=== PATIENT | female | born 1950 | race Caucasian/White ===

== ENCOUNTER 2018-12-16 10:17 | Day surgery (SDC) | payer MEDICARE | END 2018-12-16 23:02 | disposition home or self-care (01) | LOC: MOI MAM 10:17 | DX: D24.2 Benign neoplasm of left breast (principal); R92.0 Mammographic microcalcification found on diagnostic imaging of breast; R92.8 Other abnormal and inconclusive findings on diagnostic imaging of breast | CPT/HCPCS: 19081; 88305 ==

== ENCOUNTER 2020-04-10 08:03 | Day surgery (SDC) | payer MEDICARE ==
[~2020-04-10] VITALS: Ht 170.2 cm; Wt 71.4 kg
[~2020-04-10 08:03] MED LIST: Aspir 8181 MG PO; GABA300 PO; Norco 10-325 T1 EACH PO; ZOLP10 PO
[2020-04-10] MEDS ORDERED: DULO30 PO (08:59)
--- NOTE | 2020-04-10 09:49 | NUR ---
04/10/20 0949 Maddie Zee [address] VANN SHOULDER COCKTAIL INJECTED INTO OPSITE AT END OF CASE FOR PAIN CONTROL. SEE ORDERS.
--- NOTE | 2020-04-10 11:33 | NUR ---
04/10/20 1133 MAURO DEE PATIENT TO RECLINER. PATIENT TOLERATING SIPS OF LIQUIDS. DENIES NAUSEA AT THIS TIME. PATIENT REPORTS PAIN 8/10 TO RIGHT SHOULDER, ACHEY IN NATURE. PATIENT MEDICATED WITH IV FENTANYL FOR PAIN CONTROL PER MD ORDERS. PATIENT TO BEDSIDE
== END 2020-04-10 12:26 | disposition home or self-care (01) ==
LOC: ORSCSDS 08:03
PROVIDERS: Orthopaedic Surgery
PROC: 0RNJ4ZZ Release Right Shoulder Joint, Percutaneous Endoscopic Approach (ICD-10-PCS; principal; 2020-04-10 09:15)
PROC: 0LQ14ZZ Repair Right Shoulder Tendon, Percutaneous Endoscopic Approach (ICD-10-PCS; principal; 2020-04-10 09:15)
PROC: 0LS34ZZ Reposition Right Upper Arm Tendon, Percutaneous Endoscopic Approach (ICD-10-PCS; principal; 2020-04-10 09:15)
DX: M75.121 Complete rotator cuff tear or rupture of right shoulder, not specified as traumatic (principal); M75.41 Impingement syndrome of right shoulder; S46.111A Strain of muscle, fascia and tendon of long head of biceps, right arm, initial encounter; Z79.899 Other long term (current) drug therapy; Z79.82 Long term (current) use of aspirin
CPT/HCPCS: C1713; J0171; J0690; J0735; J1100; J1885; J2250; J2405; J2704; J2710; J2795; J3010; J7120

== ENCOUNTER 2021-03-23 18:40 | Emergency (ER) | payer MEDICARE ==
[~2021-03-23] VITALS: Ht 170.2 cm; Wt 68.0 kg
[~2021-03-23 18:40] MED LIST changes: +DULO30 PO
[2021-03-23] MEDS ORDERED: GABA300 PO (19:19)
[2021-03-23 20:22] LABS: Hematocrit 44.1 % (33.0-51.0); Hemoglobin 14.6 g/dL (11.5-16.0); Mean Corpuscular HGB 28.7 pg (26.0-34.0); Mean Corpuscular HGB Conc 33.1 g/dL (31.5-36.5); Mean Corpuscular Volume 87 fL (80-100); Mean Platelet Volume 10.8 fL (9.1-12.4); Platelet Count 324 K/mm3 (150-400); RDW Coefficient Variation 12.9 % (11.7-14.2); RDW Standard Deviation 40.9 fL (35.1-46.3); Red Blood Cell Count 5.08 M/mm3 (3.80-5.20); White Blood Cell Count 7.92 K/mm3 (4.00-11.30)
[2021-03-23 20:40] LABS: Alanine Aminotransfer (ALT/SGP 35 U/L (12-78); Albumin, Blood 3.1 g/dL (3.4-5.0); Albumin/Globulin Ratio 0.8 (0.8-1.8); Alk Phos 66 U/L (50-136); Anion Gap 8 mmol/L (6-16); Aspartate Aminotrans (AST/SGOT 33 U/L (12-37); Bilirubin, Total 0.6 mg/dL (0.1-1.0); Blood Urea Nitrogen 9 mg/dL (8-24); Bun/Creatinine Ratio 13.3 (12.0-20.0); CO2, Blood 29 mmol/L (21-32); Calcium, Blood 8.9 mg/dL (8.5-10.1); Chloride, Blood 102 mmol/L (98-108); Creatinine, Blood 0.68 mg/dL (0.40-1.00); Globulin, Blood 3.9 g/dL (2.2-4.0); Glomerular Filtration Rate >60 (60-); Glucose, Blood 101 mg/dL (70-99); Potassium, Blood 3.6 mmol/L (3.5-5.5); Sodium, Blood 139 mmol/L (136-145); Troponin I <0.015 ng/mL (0.000-0.040)
[2021-03-23 20:43] LABS: BASOPHILS PERCENT MAN 0 % (0-2); EOSINOPHILS PERCENT MAN 0 % (0-6); LYMPHOCYTES % ATYPICAL MANUAL 1 % (0-0); LYMPHOCYTES ABSOLUTE MAN 1.58 K/mm3 (0.84-5.20); LYMPHOCYTES PERCENT MAN 19 % (21-46); MONOCYTES ABSOLUTE MAN 1.02 K/mm3 (0.16-1.47); MONOCYTES PERCENT MAN 13 % (4-13); SEG NEUTROPHILS PERCENT MAN 67 % (41-73); TOTAL CELLS COUNTED 100
[2021-03-23 21:11] LABS: SARS-Cov-2 (COVID-19) PCR, MMC POSITIVE (NEGATIVE)
[2021-03-23] MEDS ORDERED: DEXA4 PO (22:55)
== END 2021-03-24 00:25 | disposition home or self-care (01) ==
LOC: ER 18:40
PROVIDERS: Emergency Medicine
DX: U07.1 COVID-19 (principal); R09.02 Hypoxemia; M54.9 Dorsalgia, unspecified; G89.29 Other chronic pain; Z87.891 Personal history of nicotine dependence; Z79.899 Other long term (current) drug therapy
CPT/HCPCS: 36415; 71045; 80053; 83880; 84484; 85025; 96372-59; 96374; 96375; 99284-25; J1100; J1885; J2405; U0004